=== PATIENT | male | born 1935 | race Caucasian/White ===

== ENCOUNTER → 2018-09-05 | Outpatient (CLI) | payer OTHER ==
[~2018-09-05] MED LIST: FLOMAX0.4 MG PO; ZOCOR20 MG PO
== END ==
LOC: SEN 09:09 → RAD 09:09 → SEN 14:47
DX: M47.815 Spondylosis without myelopathy or radiculopathy, thoracolumbar region (principal); M16.0 Bilateral primary osteoarthritis of hip; M47.898 Other spondylosis, sacral and sacrococcygeal region; M25.78 Osteophyte, vertebrae; M76.22 Iliac crest spur, left hip